=== PATIENT | male | born 1995 | race Caucasian/White ===

== ENCOUNTER 2018-09-15 19:34 | Emergency (ER) | payer OTHER ==
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
--- NOTE | 2018-09-15 20:14 | CT ---
Head CT Technique: Multiple axial sections through the brain were obtained. Intravenous contrast was not utilized. Comparison: No prior head CT study or other intracranial imaging is available. Findings: Sulci over the convexities are more prominent than usually seen for a patient of this age likely due to mild atrophy. There is an arachnoid cyst noted within the left temporal fossa measuring about 4.9 cm in greatest dimension. Ventricles appear within normal limits. No abnormal parenchymal densities are seen. No evidence of intracranial hemorrhage. No midline shift or mass effect is seen. Bone window settings were reviewed shows no discrete calvarial fracture. Mucosal thickening is seen in the left maxillary sinus with possible air-fluid level. Impression: 1. Maxillary sinus finding raising the possibility of pre-existing acute sinusitis. 2. Mild cortical atrophy is seen. This may relate to previous trauma. 3. Arachnoid cyst which is incidental located within the left temporal fossa. 4. No acute intracranial abnormality is appreciated. Diagnostic code #3
--- NOTE | 2018-09-15 20:17 | CT ---
CT cervical spine Technique: Multiple axial sections were obtained from above C1 inferiorly to the top of T2. Reconstructed sagittal and coronal images were reviewed. Comparison: No prior intracranial imaging is available. Findings: Vertebral body heights and disc spaces are maintained. No fracture is seen. No bony central or bony neural foraminal stenosis is seen. Slight kyphosis is noted on the reconstructed sagittal images which may relate to muscle spasm or positioning. Impression: 1. Slight kyphosis as noted above. 2. Nothing acute is seen on CT study of the cervical spine. Diagnostic code #2
[2018-09-15] MEDS ORDERED: Diphtheria,Pertussis(Acell),Tetanus Vaccine 0.5 ML Syringe ONE (20:18)
[2018-09-15] MEDS ORDERED: Diphtheria,Pertussis(Acell),Tetanus Vaccine 0.5 ML Syringe IM ONE (20:20)
--- NOTE | 2018-09-16 08:06 | CR ---
Right knee: AP, lateral and sunrise patellar views of the right knee were obtained. Comparison: No prior knee exam. Medial and lateral joint compartments are maintained in height. No joint effusion is seen. Patellofemoral joint appears within normal limits. No discrete fracture or other bony abnormality is seen. Impression: 1. No abnormality is identified on three-view right knee exam. Diagnostic code #1
== END 2018-09-15 23:00 | disposition home or self-care (01) ==
LOC: JD.ED 19:34
DX: S06.0X9A Concussion with loss of consciousness of unspecified duration, initial encounter (principal); R41.3 Other amnesia; R40.2410 Glasgow coma scale score 13-15, unspecified time; Z23 Encounter for immunization; V23.4XXA Motorcycle driver injured in collision with car, pick-up truck or van in traffic accident, initial encounter
CPT/HCPCS: 70450; 70450-26; 72125; 72125-26; 73562-26-RT; 73562-RT; 90471; 90700; 99284-25